=== PATIENT | male | born 1975 | race African-American/Black ===

== ENCOUNTER 2021-02-07 10:53 | Emergency (ER) | payer SELFPAY ==
[2021-02-07 21:38] LABS: SARS-CoV-2 PCR by NAA Not Detected (NotDetected)
== END 2021-02-07 11:55 | disposition home or self-care (01) ==
LOC: ERS 10:53
DX: U07.1 COVID-19 (principal)
CPT/HCPCS: 99283; U0003; U0005

== ENCOUNTER 2021-02-09 12:52 | Inpatient (IN) | payer SELFPAY ==
[2021-02-09] MEDS ORDERED: Iopamidol-370 76% 500 ML 1 ML ONE (13:33)
[2021-02-09] MEDS ORDERED: Morphine 4 MG/ML VIAL ONE (15:25)
[2021-02-09] MEDS ORDERED: Ondansetron PF 4 MG/2 ML Vial ONE (15:26)
[2021-02-09 15:35] LABS: Hemoglobin 13.6 g/dL (14.0-18.0); Mean Corpuscular HGB CONC 34.1 g/dL (32.0-36.0); Mean Corpuscular Hemoglobin 27.9 pg (27.0-31.0); Mean Corpuscular Volume 81.6 fL (78.0-98.0); Platelet Count 182 thou/uL (130-400); RBC Distribution Width 11.9 % (11.5-14.5); Red Blood Cell (RBC) Count 4.88 mill/uL (4.70-6.10); White Blood Cell (WBC) Count 11.8 thou/uL (4.8-10.8)
[2021-02-09 15:49] LABS: Band 28 % (5-11); Lymphocytes 15 % (21-51); MDiff Complete? YES; Monocytes 5 % (0-10); Neutrophil 52 % (42-75); Ovalocytes SLIGHT = 2-5 cells (100X) (0-1/hpf); Platelet Morphology Comment Appears Adequate; Polychromasia SLIGHT = 2-3 cells (100X) (0-2/hpf)
[2021-02-09 15:59] LABS: ALT (SGPT) 22 U/L (8-55); AST (SGOT) 23 U/L (5-34); Albumin 3.7 g/dL (3.5-5.0); Alkaline Phosphatase 28 U/L (40-110); Anion Gap 12 mmol/L (10-20); BUN (Urea Nitrogen) 15 mg/dL (8.9-20.6); Bilirubin, Total 0.6 mg/dL (0.2-1.2); CK (CPK) 361 U/L (30-200); Calc. Creatinine Clearance 0 mL/min (70-130); Calcium 9.3 mg/dL (7.8-10.44); Carbon Dioxide 26 mmol/L (22-29); Chloride 101 mmol/L (98-107); Globulin 4.3 g/dL (2.4-3.5); Glucose 114 mg/dL (70-105); Lipase 17 U/L (8-78); Potassium 3.8 mmol/L (3.5-5.1); Sodium 135 mmol/L (136-145)
[2021-02-09] MEDS ORDERED: metroNIDAZOLE 500 MG/100 ML BAG ONE (16:37)
[2021-02-09] MEDS ORDERED: Ondansetron PF 4 MG/2 ML Vial IVP PRN (18:53)
[2021-02-09] MEDS ORDERED: Ondansetron ODT 4 MG TAB PO PRN (18:53)
[2021-02-09] MEDS ORDERED: hydrALAZINE 20 MG/ML VIAL SLOW IVP PRN (18:53)
[2021-02-09] MEDS ORDERED: Acetaminophen 500 MG TAB PO PRN (18:53)
[2021-02-09] MEDS: Sodium Chloride 0.9% 1,000 ML IV SCH (19:07)
[2021-02-09] MEDS ORDERED: Famotidine 20 MG TAB ONE (21:11)
[2021-02-09] MEDS: Famotidine 20 MG TAB PO SCH (21:14)
[2021-02-09 21:35] LABS: Bacteria/HPF None Seen HPF (None Seen); Bilirubin Negative (Negative); Blood, Urine Negative (Negative); Clarity Clear (Clear); Glucose, Urine (Dipstick) Normal (Negative); Ketone, Urine Negative (Negative); Leukocyte Negative Leu/uL (Negative); Nitrite Negative (Negative); Protein, Urine (Dipstick) 30 mg/dL (Neg-Trace); RBC/HPF 0-3 HPF (0-3); Specific Gravity, Urine 1.054 (1.002-1.036); Squamous Epithelial 0-3 HPF (0-3); Urobilinogen Normal mg/dL (Less than 2); WBC/HPF 0-3 HPF (0-3)
[2021-02-10] MEDS ORDERED: metroNIDAZOLE 500 MG/100 ML BAG ONE (00:12)
[2021-02-10] MEDS: metroNIDAZOLE 500 MG in Premix Bag 1 BAG IVPB SCH ×2 (00:20→08:01)
[2021-02-10 00:43] VITALS: BMI 20.7
[2021-02-10 03:55] LABS: Amphetamine Not Detected (NotDetected); Barbiturates Screen Not Detected (NotDetected); Benzodiazepine Screen Not Detected (NotDetected); Cocaine Metabolite Screen Not Detected (NotDetected); Methadone Not Detected (NotDetected); Methamphetamine Not Detected (NotDetected); Opiate Screen Detected (NotDetected); Oxycodone Screen Not Detected (NotDetected); Phencyclidine (PCP) Not Detected (NotDetected); THC/Cannabinoid Screen Not Detected (NotDetected); Tricyclic Screen Not Detected (NotDetected)
[2021-02-10 07:14] LABS: #Lymphocytes 1.1 thou/uL (1.20-3.40); #Neutrophils 5.5 thou/uL (1.40-6.50); %Basophils 0.2 % (0.0-1.0); %Lymphocytes 14.8 % (21.0-51.0); %Monocytes 12.5 % (0.0-10.0); %Neutrophils 72.4 % (42.0-75.0); Hemoglobin 11.8 g/dL (14.0-18.0); Mean Corpuscular HGB CONC 33.1 g/dL (32.0-36.0); Mean Corpuscular Hemoglobin 27.3 pg (27.0-31.0); Mean Corpuscular Volume 82.3 fL (78.0-98.0); Mean Platelet Volume 7.8 fL (7.4-10.4); Platelet Count 171 thou/uL (130-400); RBC Distribution Width 11.8 % (11.5-14.5); Red Blood Cell (RBC) Count 4.34 mill/uL (4.70-6.10); White Blood Cell (WBC) Count 7.6 thou/uL (4.8-10.8)
[2021-02-10 07:36] LABS: ALT (SGPT) 17 U/L (8-55); AST (SGOT) 20 U/L (5-34); Albumin 3.3 g/dL (3.5-5.0); Alkaline Phosphatase 22 U/L (40-110); Anion Gap 9 mmol/L (10-20); BUN (Urea Nitrogen) 10 mg/dL (8.9-20.6); Bilirubin, Total 0.4 mg/dL (0.2-1.2); Calc. Creatinine Clearance 83 mL/min (70-130); Calcium 8.7 mg/dL (7.8-10.44); Carbon Dioxide 26 mmol/L (22-29); Chloride 106 mmol/L (98-107); Globulin 3.5 g/dL (2.4-3.5); Glucose 104 mg/dL (70-105); Potassium 3.6 mmol/L (3.5-5.1); Protein, Total 6.8 g/dL (6.0-8.3); Sodium 137 mmol/L (136-145)
[2021-02-10] MEDS: Sodium Chloride 0.9% 1,000 ML IV SCH ×2 (07:59→10:32)
[2021-02-10] MEDS: Famotidine 20 MG TAB PO SCH (08:01)
[2021-02-10 11:31] VITALS: BP 135/76; TEMP 98.5
== END 2021-02-10 12:35 | disposition left against medical advice (07) | DRG 392 ==
LOC: ERS 12:52 → ERHOLD 17:06 → SURG A 02-10 06:19
PROVIDERS: ADMIT Family Medicine; ATTEND Family Medicine
DX: A09 Infectious gastroenteritis and colitis, unspecified (principal); N17.9 Acute kidney failure, unspecified; D70.9 Neutropenia, unspecified; Z53.29 Procedure and treatment not carried out because of patient's decision for other reasons; Z79.899 Other long term (current) drug therapy
CPT/HCPCS: 36415; 36416; 71045; 74177; 80053; 80306; 81003; 81015; 82550; 83605; 83690; 85025; 87040; 96365; 96367; 96375; J1956; J2270; J2405; J7050; Q0162; Q9967

== ENCOUNTER 2021-03-05 11:08 | Emergency (ER) | payer SELFPAY | END 2021-03-05 14:06 | disposition home or self-care (01) | LOC: ERS 11:08 | DX: I82.611 Acute embolism and thrombosis of superficial veins of right upper extremity (principal) ==